=== PATIENT | female | born 1960 | race Two or more races ===

== ENCOUNTER 2021-07-07 07:44 | Outpatient (CLI) | payer OTHER | END 2021-07-07 11:37 | disposition home or self-care (01) | LOC: LAB 07:44 | PROVIDERS: ATTEND Orthopaedic Surgery | DX: Z01.812 Encounter for preprocedural laboratory examination (principal); Z20.822 Contact with and (suspected) exposure to COVID-19 ==

== ENCOUNTER 2021-07-09 08:06 | Outpatient (CLI) | payer OTHER ==
[2021-07-09 11:11] LABS: HEMATOCRIT 36.8 % (31.2-41.9); MEAN CORPUSCULAR HEMOGLOBIN 32.4 uug (24.7-32.8); MEAN CORPUSCULAR VOLUME 94.4 fL (75.5-95.3); PLATELET COUNT (AUTO) 241 K/uL (179-408)
[2021-07-09 11:15] LABS: CREATININE 0.9 mg/dL (0.6-1.3); POTASSIUM 4.3 mmol/L (3.5-5.1)
[2021-07-09 11:15] LABS: *BILIRUBIN,URIN NEGATIVE (NEGATIVE); *BLOOD, URINE 1+ (NEGATIVE); *CLARITY,URINE CLEAR (CLEAR); *COLOR,URINE YELLOW (YELLOW); *KETONES,URINE NEGATIVE (NEGATIVE); *UROBILINOGEN,URINE 0.2 E.U./dl (NORMAL); LEUKOCYTE ESTERASE ,URINE TRACE (NEGATIVE); NITRITE, URINE NEGATIVE (NEGATIVE); UGLUCOSE NEGATIVE (NEGATIVE)
[2021-07-09 11:22] LABS: BILIRUBIN,TOTAL 0.7 mg/dL (0.2-1.0)
[2021-07-09 13:35] LABS: BACTERIA,URINE NONE SEEN /HPF (NONE SEEN); SQUAMOUS EPITHELIAL CELL,UR FEW /HPF (NONE SEEN)
== END 2021-07-09 23:59 | disposition home or self-care (01) ==
LOC: LAB 08:06
PROVIDERS: ATTEND Orthopaedic Surgery
DX: Z01.818 Encounter for other preprocedural examination (principal); G56.01 Carpal tunnel syndrome, right upper limb; G56.11 Other lesions of median nerve, right upper limb
CPT/HCPCS: 36415; 71045; 85025; 85730; 93005; A4663

== ENCOUNTER 2021-07-10 08:44 | Day surgery (SDC) | payer OTHER ==
[2021-07-10] MEDS ORDERED: EPHEDRINE SULFATE 50 MG/ML AMPUL IM ONE (08:45)
[2021-07-10] MEDS ORDERED: CEFAZOLIN 1 G VIAL IM ONE (08:45)
[2021-07-10] MEDS ORDERED: DEXAMETHASONE SOD PHOSPHATE 4 MG INJ IV ONE (08:45)
[2021-07-10] MEDS ORDERED: PHENYLEPHRINE 10 MG/1 ML VIAL IV ONE (08:45)
[2021-07-10] MEDS ORDERED: ONDANSETRON 4 MG/2 ML VIAL IV ONE (08:45)
[2021-07-10] MEDS ORDERED: MIDAZOLAM HCL 2 MG/2 ML VIAL ONE (11:04)
[2021-07-10] MEDS ORDERED: FENTANYL CITRATE 100 MCG/2 ML AMPUL ONE (11:04)
[2021-07-10] MEDS ORDERED: PROPOFOL 200 MG/20 ML BOTTLE ONE (11:04)
[2021-07-10] MEDS ORDERED: BUPIVACAINE PF 0.5% 30 ML VIAL ONE (11:05)
== END 2021-07-10 14:50 | disposition home or self-care (01) ==
LOC: DS 08:44
PROVIDERS: ATTEND Orthopaedic Surgery
DX: G56.01 Carpal tunnel syndrome, right upper limb (principal); Z79.899 Other long term (current) drug therapy; Z98.890 Other specified postprocedural states
CPT/HCPCS: 64721; J0690; J1100; J2250; J2370; J2405; J3010; J3490 ×2; J7120; A4649